=== PATIENT | male | born 1965 | race Caucasian/White ===

== ENCOUNTER 2016-08-06 09:41 | Emergency (ER) | payer OTHER ==
[~2016-08-06] VITALS: Ht 172.7 cm; Wt 93.2 kg
[2016-08-06 09:46] VITALS: BP 166/88; PULSE 95; RESP 18; O2SAT 97
--- NOTE | 2016-08-06 09:48 | ED.REPORT ---
HPI-Trauma Minor / Fall Date of Service August 06, 2016 ED Provider: Jorge Chandler MD A pleasant 50 year old male presents to the ER accompanied by his son due to head injury status post being struck by a falling tree limb just prior to arrival. Son reports that the patient collapsed backwards to the ground after being hit, and was knocked unconscious for 30-45 seconds. Currently patient complains of head pain, neck pain, and right upper back pain. Nursing Notes Stated Complaint: HEAD INJURY/UNABLE TO RECALL INJURY Chief Complaint: Head, Face, Neck Trauma Nursing Notes Reviewed: Yes Allergies: Coded Allergies: No Known Allergies (Unverified , 08/06/16) General Time Seen by MD: 09:44 Chief Complaint Head injury, Loss of consciousness Hx Obtained From: Patient Arrived By: Walk-in Onset Occurred: Just prior to arrival Symptom Duration: Since onset Caused by: Accidental, Blunt trauma Context: Occurred at: Home injury Location: Head Neck Quality: Painful Severity: Current: Moderate Severity: Maximum: Moderate Similar Sx Previous: No Past Medical History Past Medical History Reports: GERD Smoking History Unknown if Ever Smoker Social History Other Social History: Good social support Ambulatory Status Independent Review of Systems Musculoskeletal: Reports: Back pain (Right Upper Back), Joint pain (Right Shoulder), Neck pain, Denies: Extremity pain, Lumbar pain, Thoracic pain Neurologic: Reports: Headache, Syncope, Denies: Focal weakness, Numbness, Weakness Complete sys rev & neg: except as marked. Physical Exam Initial Vital Signs Vital Signs (First) Date Time Temp Pulse Resp B/P Pulse Ox O2 Delivery O2 Flow Rate FiO2 08/06/16 09:46 36.2 95 18 166/88 97 Room Air Initial VS: Reviewed Abdomen / GI: Soft, Non-tender, No guarding, No rebound, No distention Extremities: Vascular intact, Neuro intact, No swelling, No tenderness Skin: Warm, Dry, No cyanosis Neurologic: Alert, Oriented, Nonfocal General/Constitutional: Awake, Alert, Well developed, Well nourished Neck: Supple, Full range of motion, Non-tender No step-off Head / Eyes: Normocephalic, PERRL, EOMI Hematoma over right frontal scalp. Abrasions over scalp. Back: Full range of motion, No midline vertebral tend Abrasions over right upper back. Upper Extremity / MS: Full range of motion, Neurologic intact, Vascular intact Abrasions over right shoulder. Interpretation & Diagnostics X-Ray Chest Interpretation Chest Xray Interpretation: IMPRESSION: No acute cardiopulmonary disease process. Dictated by: Danyelle Duque MD, PhD on 08/06/2016 at 11:00 Approved by: Danyelle Duque MD, PhD on 08/06/2016 at 11:01 View: Portable, 1 view Interpretation / Wet Read by: Interpret - Radiologist X-Ray Interpretation Xray Interpretation: IMPRESSION: No fracture. No osseous lesion. If symptoms and/or clinical suspicion for pathology persists, further assessment with repeat radiographs or advanced imaging (e.g. CT, MRI or bone scan) may be helpful for further assessment. Dictated by: Danyelle Duque MD, PhD on 08/06/2016 at 11:01 Approved by: Danyelle Duque MD, PhD on 08/06/2016 at 11:02 X-Ray Ordered: Shoulder right Interpretation / Wet Read by: Interpret - Radiologist CT Head Interpretation IMPRESSION: 1. No acute intracranial hemorrhage. 2. Subgaleal hematoma overlying the right forehead. No underlying fracture. 3. Air-fluid level within the left maxillary sinus may be related to sinusitis. However, if there is clinical concern for an acute facial bone fracture, please consider dedicated CT of the face and sinuses. Dictated by: Chip Mazariegos M.D. on 08/06/2016 at 9:11 Approved by: Chip Mazariegos M.D. on 08/06/2016 at 9:14 Study: Head CT no contrast Interpretation / Wet Read by: Interpret - Radiologist CT C-Spine Interpretation IMPRESSION: 1. No acute fracture of the cervical spine. 2. Moderate degenerative changes of the cervical spine are most pronounced at C5-6. 3. Straightening of the normal cervical lordosis may be positional, degenerative, and/or related to muscle spasm. Dictated by: Chip Mazariegos M.D. on 08/06/2016 at 9:14 Approved by: Chip Mazariegos M.D. on 08/06/2016 at 9:17 Study type: CT no contrast Interpretation / Wet Read by: Interpret - Radiologist Re-Eval/Medical Decision Med Decision/Clinical Course 50-year-old male presenting status post tree limb falling onto his head. 45 second loss of consciousness. He has no neurological deficits and is alert and oriented on arrival. He has a large right scalp hematoma. CT brain no acute intracranial pathology. CT C-spine no fracture. No neurological deficits. Patient is stable for discharge home with return precautions. Consulted regarding concussion symptoms and return precautions. Discharged in the care of his son. Re-Evaluation/Progress #1: Time of Eval: 10:24 Re-Evaluation/Progress Note: Discussed CT results and plan to discharge pending x-ray results. Patient is amenable to the plan. Re-Evaluation/Progress #2: Time of Eval: 11:34 Re-Evaluation/Progress Note: Discussed x-ray results and plan to discharge. Patient is amenable to the plan. Return precautions given. All other questions addressed. Counseled Regarding: Diagnosis, Need for follow-up, When/why to return to ED Discharge & Departure Impression: Primary Impression: Head trauma Additional Impressions: Scalp hematoma Concussion Disposition: Home Discharge Condition All VS Reviewed: Yes Condition: Improved Patient Instructions: Concussion (DC) Additional Instructions: Your workup today is reassuring. There is no sign of bleeding in your brain on your head CT scan, and your x-rays do not indicate any fractures. I believe that you have a concussion. You can expect to feel the effects of this for the next few weeks. Go home and rest. Limit your activity, and do not engage in any activities that put you at risk for striking your head. Take ibuprofen or Tylenol as needed for pain. Follow-up with your primary care physician tomorrow. Return to the ER if you develop worsening headache, nausea, vomiting, changes in vision or speech, difficulty swallowing, numbness/tingling/weakness, or any other concerning symptoms. Referrals: Ghanshyam Huang MD (PCP) [place] Attestation Portions of this note were transcribed by Messi Mtz. I, Dr. Chandler, personally performed the history, physical exam and medical decision-making; I reviewed and confirmed the accuracy of the information in the transcribed note. Signed by: Edenilson Rai, 08/06/2016 at 11:35 copies to: Ghanshyam Huang MD, Ben M MD August 06, 2016 09:48 MESSI MTZ August 06, 2016 10:02
--- NOTE | 2016-08-06 10:15 | DRSVH ---
PROCEDURE: CT BRAIN WITHOUT CONTRAST ([id number]) INDICATIONS: trauma/tree fell on pt/loc TECHNIQUE: Noncontrast 4.5 mm thick angled axial sections acquired from the foramen magnum to the vertex, with c oronal reformats. COMPARISON: None. FINDINGS: Image quality: Diagnostic. Brain: There is no acute intra-axial or extra-axial hemorrhage. No extra-axial fluid collection is i dentified. There is no midline shift or mass effect. The orbits are grossly unremarkable. No large areas of diffusely decreased attenuation are evident within the brain to suggest diffuse cer ebral edema. No focal parenchymal abnormality is identified. The ventricles and cortical sulci are age-appropriate. Bones: Calvarium and visualized facial bones are grossly intact. An air-fluid level seen within the left maxillary sinus. Otherwise, the paranasal sinuses are clear. Soft tissue swelling/subcutaneou s hematoma is evident overlying the right forehead. No underlying fractures are evident. IMPRESSION: 1. No acute intracranial hemorrhage. 2. Subgaleal hematoma overlying the right forehead. No underlying fracture. 3. Air-fluid level within the left maxillary sinus may be related to sinusitis. However, if there i s clinical concern for an acute facial bone fracture, please consider dedicated CT of the face and si nuses. Dictated by: Chip Mazariegos M.D. on 08/06/2016 at 9:11 Approved by: Chip Mazariegos M.D. on 08/06/2016 at 9:14
[2016-08-06] MEDS ORDERED: Ondansetron 8 mg ODT Tablet ONE (10:18)
--- NOTE | 2016-08-06 10:19 | DRSVH ---
PROCEDURE: CT CERVICAL SPINE WITHOUT CONTRAST ([id number]) INDICATIONS: trauma TECHNIQUE: Noncontrast 3 mm thick sections acquired from the skull base to the T4 level. Sagittal and coronal r eformats were then constructed. For radiation dose reduction, the following was used: automated exp osure control, adjustment of mA and/or kV according to patient size. COMPARISON: None. FINDINGS: Image quality: Diagnostic. Bones: The craniocervical and atlantoaxial joints are well-maintained. The odontoid is intact. The vertebral body heights and prevertebral soft tissues are within normal limits throughout the cervical spine without evidence to suggest acute compression fracture. No other fractures are evident within the cervical spine. The bone mineralization is within normal limits. No suspicious osseous lesions are present. 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 Moderate degenerative changes of the cervical spine are most pronounced at the level of C5-6 with mod erate disc height loss and a moderate-sized disc osteophyte complexes. Mild to moderate areas of fac et arthrosis are noted throughout the cervical spine. There is straightening of the normal cervical lordosis. Soft tissues: No prevertebral soft tissue swelling. The imaged lung apices are clear. Imaged porti ons of the mediastinum are unremarkable. Otherwise, the remainder of the imaged soft tissues of the neck are within normal limits. Mild carotid artery atherosclerosis is incidentally noted. IMPRESSION: 1. No acute fracture of the cervical spine. 2. Moderate degenerative changes of the cervical spine are most pronounced at C5-6. 3. Straightening of the normal cervical lordosis may be positional, degenerative, and/or related to muscle spasm. Dictated by: Chip Mazariegos M.D. on 08/06/2016 at 9:14 Approved by: Chip Mazariegos M.D. on 08/06/2016 at 9:17
--- NOTE | 2016-08-06 11:02 | DRSVH ---
PROCEDURE: X-RAY CHEST ONE VIEW, PORTABLE ([id number]) INDICATIONS: trauma TECHNIQUE: One view of the chest was acquired. COMPARISON: None. FINDINGS: Surgical changes and devices: None. Lungs and pleura: No pleural effusions or pneumothorax. Lungs are clear. Mediastinum: Mediastinal contours appear normal. Heart size is normal. Bones and chest wall: No suspicious bony lesions. Overlying soft tissues appear unremarkable. IMPRESSION: No acute cardiopulmonary disease process. Dictated by: Danyelle Duque MD, PhD on 08/06/2016 at 11:00 Approved by: Danyelle Duque MD, PhD on 08/06/2016 at 11:01
--- NOTE | 2016-08-06 11:03 | DRSVH ---
PROCEDURE: X-RAY RIGHT SHOULDER, MINIMUM TWO VIEWS ([id number]) INDICATIONS: trauma TECHNIQUE: 3 views of the shoulder were acquired. COMPARISON: None. FINDINGS: Bones: No fractures or dislocations. No suspicious bony lesions. Visualized ribs appear intact. Soft tissues: No suspicious soft tissue calcifications. IMPRESSION: No fracture. No osseous lesion. If symptoms and/or clinical suspicion for pathology pers ists, further assessment with repeat radiographs or advanced imaging (e.g. CT, MRI or bone scan) may be helpful for further assessment. Dictated by: Danyelle Duque MD, PhD on 08/06/2016 at 11:01 Approved by: Danyelle Duque MD, PhD on 08/06/2016 at 11:02
[2016-08-06 11:45] VITALS: BP 145/90; PULSE 74; RESP 15; O2SAT 96
== END 2016-08-06 11:28 | disposition home or self-care (01) ==
LOC: SED 09:41
DX: S09.90XA Unspecified injury of head, initial encounter (principal); S00.03XA Contusion of scalp, initial encounter; S06.0X1A Concussion with loss of consciousness of 30 minutes or less, initial encounter; W20.8XXA Other cause of strike by thrown, projected or falling object, initial encounter; Y93.89 Activity, other specified; Y92.9 Unspecified place or not applicable; Y99.8 Other external cause status; K21.9 Gastro-esophageal reflux disease without esophagitis
CPT/HCPCS: 70450; 71010; 72125; 73030; 96372; 99284; J2270